=== PATIENT | female | born 1980 | race Caucasian/White ===

== ENCOUNTER 2018-09-05 14:35 | Emergency (ER) | payer OTHER ==
[~2018-09-05] VITALS: Ht 172.7 cm; Wt 65.9 kg
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
[2018-09-05] MEDS ORDERED: PROMETHAZINE 25 MG/ML, 1ML ONE (14:51)
[2018-09-05] MEDS: PROMETHAZINE 25 MG/ML, 1ML IM ONE (14:58)
--- NOTE | 2018-09-05 15:03 | NUR ---
Provided medication per EMAR. Pt appreciative.
[2018-09-05 15:12] LABS: BASOPHILS % (AUTO) 0 % (0-1); EOSINOPHILS # (AUTO) 0.05 x10^3/uL (0-0.4); EOSINOPHILS % (AUTO) 1 % (1-7); LYMPHOCYTES # (AUTO) 0.81 x10^3/uL (1-3.4); LYMPHOCYTES % (AUTO) 9 % (22-44); MD NO; MEAN CORPUSCULAR HEMOGLOBIN 32.3 pg (27.0-34.8); MEAN CORPUSCULAR HGB CONC 33.6 g/dL (32.4-35.8); MEAN CORPUSCULAR VOLUME 96.1 fL (80-100); MEAN PLATELET VOLUME 7.9 fL (7.4-10.4); MONOCYTES # (AUTO) 0.14 x10^3/uL (0.2-0.8); MONOCYTES % (AUTO) 1 % (2-9); NEUTROPHILS # (AUTO) 8.48 x10^3/uL (1.8-6.8); NEUTROPHILS % (AUTO) 90 % (42-75); PLATELET COUNT 224 x10^3/uL (130-400); RED BLOOD COUNT 4.24 x10^6/uL (3.82-5.3); RED CELL DISTRIBUTION WIDTH 12.5 % (9.6-15.2)
[2018-09-05 15:20] LABS: ALANINE AMINOTRANSFERASE 21 U/L (12-78); ALBUMIN 3.7 g/dL (3.4-5.0); ANION GAP 11 mmol/L (5-15); CALCIUM 8.4 mg/dL (8.5-10.1); CHLORIDE 110 mmol/L (98-107); CREATININE 0.55 mg/dL (0.55-1.02)
[2018-09-05 15:24] LABS: ALKALINE PHOSPHATASE 38 U/L (45-117); BILIRUBIN,TOTAL 0.4 mg/dL (0.2-1.0); TOTAL PROTEIN 6.6 g/dL (6.4-8.2)
[2018-09-05] MEDS ORDERED: METOCLOPRAMIDE 5 MG/ML, 2ML ONE (16:01)
[2018-09-05] MEDS: METOCLOPRAMIDE 5 MG/ML, 2ML IVPush ONE (16:04)
[2018-09-05] MEDS ORDERED: FAMOTIDINE 20 MG/2 ML ONE ×2 (16:06→16:13)
[2018-09-05] MEDS: SODIUM CHLORIDE 0.9% 1,000ML IVBOLUS ONE (16:17)
[2018-09-05] MEDS: FAMOTIDINE 20 MG/2 ML IVPush ONE (16:48)
[2018-09-05] MEDS ORDERED: MAALOX/HYOSCYAMINE/LIDOCAINE 45 ML BTL ONE (17:34)
[2018-09-05] MEDS ORDERED: MAALOX/HYOSCYAMINE/LIDOCAINE 45 ML BTL PO ONE (18:00)
--- NOTE | 2018-09-05 18:06 | NUR ---
Successful po challenge. Still mildly nauseated, but able to keep down fluids.
[2018-09-05 18:39] VITALS: BP 133/87
--- NOTE | 2018-09-05 18:40 | NUR ---
Patient/Caregiver given discharge instructions and they have confirmed that they understand the instructions. Patient ambulatory with steady gait.
== END 2018-09-05 18:41 | disposition home or self-care (01) ==
LOC: ED 17:20
DX: S06.0X0A Concussion without loss of consciousness, initial encounter (principal); K29.20 Alcoholic gastritis without bleeding; F10.10 Alcohol abuse, uncomplicated; W18.39XA Other fall on same level, initial encounter; Y93.89 Activity, other specified; Y92.89 Other specified places as the place of occurrence of the external cause; Y99.8 Other external cause status; Y90.9 Presence of alcohol in blood, level not specified
CPT/HCPCS: 36415; 70450; 70480; 70486; 80053; 80307; 83690; 84703; 85025; 96361; 96372; 96374; 96375; 99284; J2550; J2765; J3490; J7030